=== PATIENT | female | born 1990 | race Caucasian/White ===

== ENCOUNTER 2025-06-17 12:54 | Emergency (ER) | payer OTHER, SELFPAY ==
[2025-06-17 12:59] VITALS: BP 97/72; PULSE 76; TEMP 36.6; O2SAT 100; BMI 18.9
--- NOTE | 2025-06-17 13:14 | ED.ANIMALBI1 ---
HPI - Animal Bite General Chief Complaint: Animal Bite Stated Complaint: DOG BITE - LEFT HAND Time Seen by Provider: 06/17/25 13:10 Source: patient Mode of arrival: walk-in Limitations: no limitations History of Present Illness MD complaint: Reports animal bite Onset (ago): minute(s) Animal: Reports dog Description of animal: Reports household pet Mechanism: Reports bite Location: Reports other Location - Extremities: Left: hand Pain description: Reports sharp Severity: mild Context: Reports provoked (Patient already has 2 dogs, the dog that bit her is older, she was trying to assist this dog with a bad hip, the younger dog was rambunctious and got in the way irritating the older dog) Associated symptoms: Reports none Treatments prior to arrival: Reports pressure Related Data Patient tetanus UTD: No Previous Rx's ?Medication ?Instructions ?Recorded amoxicillin-potassium clavulanate 1 tab PO Q12H 10 days #20 tabs 06/17/25 1,000 mg-62.5 mg tablet,ext.rel 12hr (Augmentin XR) Allergies Allergy/AdvReac Type Severity Reaction Status Date / Time No Known Drug Allergies Allergy Verified 06/17/25 12:59 Review of Systems ROS Status of ROS 10 or more systems reviewed and unremarkable except as noted in history and below PFSH PFS Social History Little interest or pleasure in doing things: not at all Feeling down, depressed, or hopeless: not at all Exam Constitutional Vital Signs, click to edit/add: Last Vital Signs Temp 97.8 F 06/17/25 12:59 Pulse 76 06/17/25 12:59 Resp 18 06/17/25 12:59 BP 97/72 06/17/25 12:59 Pulse Ox 100 06/17/25 12:59 O2 Del Method Room Air 06/17/25 13:09 Documenting provider has reviewed patient's vital signs: yes Common normals: no apparent distress General appearance: cooperative, comfortable, well kempt and well developed Orientation/consciousness: Yes awake, Yes oriented to person, Yes oriented to place and Yes oriented to time HENMT Common normals: normocephalic, head/scalp atraumatic, hearing grossly normal bilaterally, external ears normal and moist oral mucous membranes Head and scalp: normal to inspection Face and sinus: normal facial exam Nose: external nose normal External ear: external ears normal External auditory canal: EACs normal Eye Common normals: PERRL General eye: normal appearance of both eyes Visual acuity: acuity normal Eyelid: eyelids normal Conjunctiva: conjunctiva(e) normal Sclera: sclerae normal Cornea: corneas normal Pupil: PERRL EOM: EOM abnormal Neck & C-Spine Common normals: full ROM General: normal visual inspection Lymph Lymphatic: no lymphadenopathy noted Chest Common normals: inspection of chest normal Respiratory Common normals: normal respiratory effort Effort & inspection: able to speak in complete sentences Auscultation: clear to auscultation bilaterally Cardio Common normals: no JVD, regular rate, regular rhythm, S1 normal heart sound, S2 normal heart sound, no gallops, no clicks, no murmurs and no rub Palpation: normal PMI Rate: regular rate Rhythm: regular rhythm Heart sounds: S1 normal and S2 normal Extremity Common normals: full ROM General: normal exam except as noted and other findings (Dorsum of the left hand, 0.3 mm puncture wounds lateral aspect and medial) Neuro Common normals: oriented x3, CN's II-XII intact bilaterally, moves all extremities, no focal motor deficits, no sensory deficits noted and gait normal Sensorium/orientation: awake, alert, oriented to person, oriented to place and oriented to time Speech: speech normal Gait (neuro): normal gait Psych Common normals: mental status grossly normal Appearance: grossly normal Attitude: calm and engaged Activity/motor behavior: appropriate eye contact Speech: normal speech Mood and affect: euthymic mood Thought process: normal thought process Thought content: normal thought content Attention/concentration: attention grossly intact Memory/cognition: memory grossly intact Insight: insight good Judgement: judgment good Course Course Hospital Course: Patient's wounds were soaked. Wounds were inspected. Dry sterile dressings were applied. I had a long discussion with the patient regarding why we do not place sutures and dog bites. She was in agreement with the plan of care. Patient received Tdap here in the department. I discussed the course of antibiotic therapy with the patient. I discussed with her that the need for completion of the entire course of antibiotics. The patient has no known allergies. The course of antibiotic therapy will be Augmentin, Vital Signs Vital signs: Vital Signs Temperature 97.8 F 06/17/25 12:59 Pulse Rate 76 06/17/25 12:59 Respiratory Rate 18 06/17/25 12:59 Blood Pressure 97/72 06/17/25 12:59 Pulse Oximetry 100 06/17/25 12:59 Temperature 97.8 F 06/17/25 12:59 Pulse Rate 76 06/17/25 12:59 Respiratory Rate 18 06/17/25 12:59 Blood Pressure 97/72 06/17/25 12:59 Pulse Oximetry 100 06/17/25 12:59 Oxygen Delivery Method Room Air 06/17/25 13:09 MDM - Animal Bite Differential Diagnosis Differential diagnosis: Likely dog bite (dog bite left hand) Discharge Plan Discharge Chief Complaint: Animal Bite Clinical Impression: Dog bite, Bite by animal Patient Disposition: Home, Self-Care Time of Disposition Decision: 13:31 Condition: Good Mode of Transportation: Private Vehicle Prescriptions / Home Meds: New amoxicillin-pot clavulanate [Augmentin XR] 1,000-62.5 mg tablet extended release 12 hr 1 tab PO Q12H 10 Days Qty: 20 0RF Print Language: Citizen Of [place] Instructions: Animal Bite (ED) Referrals: Raheel Momin MD [Primary Care Provider, [facility]] - 1 week Discharge Date/Time: 06/17/25 13:52 Procedures ED Procedure Instructions Procedures Procedures: Left hand was soaked, wounds were cleansed and inspected. No evidence of FB, hx not consistent with FB. Wounds were not closed due to being dog bites, and this was explained to patient. Dry sterile dressing were applied. Distal neuro vascular was intact after application of dressings. Patient has 2 0.3 mm puncture wound on the lateral aspect of her left hand being at the lateral aspect, and one being at the medial aspect. Patient has full active range of motion. These extend only into the subcutaneous tissue. There is no involvement of the tendon. Bleeding has been controlled. Distal neurovascular is intact. Patient is to return to the emergency department for any increase in redness, warmth, swelling, pain that is worse instead of better. She is also to return if she has any fevers, chills, sweats. Purulent drainage from the wound. Red streaking going up the arm. She can follow-up with her primary care physician. The patient will be discharged to home in stable condition. She has any further concerns she can return to the emergency department for any further problems or concerns. She will be discharged to home in stable condition.
[2025-06-17] MEDS: DIPHTH,PERTUSS(ACELL),TET VAC 0.5 ML SYRINGE IM (13:22)
--- OUTSIDE RECORDS SUMMARY | 2025-06-17 13:29 | XMS_ITS | Clinical Summary ---
Author Organization [facility] tem Address [id number] [place] [address] Care Team Providers Care [employer] Name Role Phone Raheel Momin MD Primary Care Provider +-6 Social History Tobacco UseTypesPacks/DayYears UsedDateSmoking Tobacco: Never AssessedChildcare AnswerDate McykivsyFfqrvwbjnAkvqyrr00/12/2019EmploymentAnswerDate Recorded VhosjisgbxLjesrjg17/12/2019Purpose - LifeAnswerDate RecordedPurpose and direction in avsaSrwdost03/11/2021CommentsUnknownSex and Gender InformationValueDate RecordedSex Assigned at BirthNot on fileLegal SexFemale 02/18/2015 11:58 AM EDTGender IdentityNot on fileSexual OrientationNot on file Plan of Treatment Health MaintenanceDue DateLast DoneCommentsDepression Rtedwctlb00/27/2002Tobacco Lthceyjli86/27/2002Adult BMI Kqiziiipt24/27/2008DTaP,Tdap and Td Vaccines (1 - Tdap)2009Pap Smear2011Influenza Zjxalar4603/16/2025 Medical Devices Not on file Insurance Care Teams Team MemberRelationshipSpecialtyStart DateEnd Date Raheel Momin MD PCP - Aevvcxi00/13/18
== END 2025-06-17 13:52 | disposition home or self-care (01) ==
PROVIDERS: Emergency Provider Emergency Medicine; PCP Family Medicine
DX: S61.432A Puncture wound without foreign body of left hand, initial encounter (principal); W54.0XXA Bitten by dog, initial encounter; Z23 Encounter for immunization
CPT/HCPCS: 90471; 90715; 99284